=== PATIENT | male | born 1960 | race Caucasian/White ===

== ENCOUNTER 2016-06-13 08:35 | Emergency (ER) | payer MEDICAID ==
[~2016-06-13] VITALS: Ht 177.8 cm; Wt 75.4 kg
[2016-06-13] MEDS ORDERED: LISI-167 PO (08:50)
[2016-06-13] MEDS ORDERED: CLON-364 PO (08:51)
[2016-06-13] MEDS ORDERED: SODIUM CHLORIDE 0.9% 1,000 ML IV ONE (09:03)
[2016-06-13 09:28] LABS: HEMOGLOBIN 14.3 g/dL (13.7-18.0)
[2016-06-13] MEDS ORDERED: SODIUM CHLORIDE FLUSH 10ML SYR IVF ONE (09:30)
[2016-06-13] MEDS ORDERED: PLEASE ENTER ALLERGIES MC SCH ×2 (09:30)
[2016-06-13] MEDS ORDERED: MECLIZINE CHEWABLE 25 MG TAB PO ONE (09:30)
[2016-06-13] MEDS ORDERED: SODIUM CHLORIDE 0.9% 1,000ML IVBOLUS ONE (09:30)
[2016-06-13] MEDS ORDERED: MECLIZINE CHEWABLE 25 MG TAB ONE (09:40)
[2016-06-13 09:41] LABS: ASPARTATE AMINO TRANSFERASE 14 U/L (15-37); BLOOD UREA NITROGEN 12 mg/dL (7-18)
[2016-06-13] MEDS ORDERED: ONDANSETRON 2MG/ML, 2ML IVPush ONE (10:00)
[2016-06-13] MEDS ORDERED: ONDANSETRON 2MG/ML, 2ML ONE (10:12)
[2016-06-13] MEDS ORDERED: ASPIRIN 81 MG TABLET CHEW ONE (10:12)
[2016-06-13 10:22] LABS: IS PT STATUS REG ER OR PRE ER? YES
[2016-06-13] MEDS ORDERED: ASPIRIN 81 MG TABLET CHEW PO ONE (10:30)
[2016-06-13] MEDS ORDERED: DIAZEPAM 5 MG/ML, 2ML IV ONE (11:30)
[2016-06-13] MEDS ORDERED: DIAZEPAM 5 MG/ML, 2ML ONE (11:43)
[2016-06-13 13:43] VITALS: BP 166/88
== END 2016-06-13 13:46 | disposition home or self-care (01) ==
LOC: ED 10:36
DX: H81.13 Benign paroxysmal vertigo, bilateral (principal); H81.393 Other peripheral vertigo, bilateral; R11.2 Nausea with vomiting, unspecified
CPT/HCPCS: 36415; 70450; 71010; 80053; 84484; 85025; 86850; 86900; 93005; 96361; 96374; 96375; 99285; J2405; J3360; J7030